=== PATIENT | female | born 1975 | race Caucasian/White ===

== ENCOUNTER 2022-06-02 13:05 | Emergency (ER) | payer OTHER, SELFPAY ==
--- NOTE | 2022-06-02 | ECG_ITS ---
Test Reason : disoriented Blood Pressure : / mmHG Vent. Rate : 068 BPM Atrial Rate : 068 BPM P-R Int : 180 ms QRS Dur : 086 ms QT Int : 410 ms P-R-T Axes : 052 -21 019 degrees QTc Int : 435 ms Sinus rhythm with occasional Premature ventricular complexes Minimal voltage criteria for LVH, may be normal variant ( R in aVL ) Possible Anterior infarct , age undetermined Abnormal ECG When compared with ECG of 27-NOV-2016 09:15, Premature ventricular complexes are now Present Nonspecific T wave abnormality no longer evident in Lateral leads Referred By: Generic ED Physician Electronically Signed By:Curtis Newell
--- NOTE | ~2022-06-02 | CT_ITS ---
EXAMINATION: CT HEAD WITHOUT CONTRAST CLINICAL INFORMATION: Headache, vision changes, confusion. COMPARISON: None TECHNIQUE: Contiguous axial imaging was performed from the skull base to vertex without intravenous administration of contrast. Coronal and sagittal reformatted images were obtained. This CT examination was performed using dose optimization techniques as appropriate, variously including the following: *Automated exposure control *Adjustment of mA and/or kV according to patient size (this includes techniques or standardized protocols for targeted exams where dose is matched to indication/reason for exam; i.e. extremities or head) *Use of iterative reconstruction technique DLP: 564 mGy-cm FINDINGS: There is no evidence of acute intracranial hemorrhage or territorial infarction. No abnormal mass effect or midline shift is seen. Tello to white matter differentiation is well preserved. No extra-axial fluid collections are identified. The ventricles are normal in size. There is no abnormal attenuation within the brain parenchyma. The osseous structures and soft tissues are normal. The mastoid air cells and visualized portions of the paranasal sinuses are well aerated. CT/CT head/brain wo con IMPRESSION: No acute intracranial pathology.
[2022-06-02 13:18] VITALS: BP 144/87; PULSE 67; RESP 18; TEMP 36.2; O2SAT 100; BMI 42.7
--- NOTE | 2022-06-02 13:56 | ED_ITS ---
HPI - Neuro Symptoms/Deficit General Chief Complaint: Neuro Symptoms/Deficit Stated Complaint: Brain fogginess/Vision issues Time Seen by Provider: 06/02/22 13:56 Source: patient Mode of arrival: ambulatory Limitations: no limitations History of Present Illness HPI Narrative: 46 yo female with history of Sjogren's, hypothyroidism, anxiety/depression who presents to the ER with the feeling of the ?brain fog. ? She reports this morning when she was looking at her resume for work she had vision changes, the words funny? and maybe a little bit blurry, she had a hard time describing how they actually looked. This lasted only couple of moments. She then had a very important virtual meeting for work and an important presentation to make. She reports during the presentation she lost her thoughts and was unable to remember what she was OC stay. She was anxious at the time. She reports since then she has had a feeling of ?disorientation and fogginess. She states on the way to the hospital she missed the exit because she could not remember where she was driving. She denies any weakness, numbness, tingling, speech difficulties. She feels almost back to baseline but ?a little off. ? She also reports new areas of bruising on her bilateral upper extremities. She is not on anticoagulation. She has a history of a provoked DVT and PE in 2016 and has been off of anticoagulation for some time now. She denies any shortness of breath or chest pain. Onset (ago): hour(s) Location: speech and altered History of same: No Severity: mild Quality: improving Relieving factors: time and rest Context: sudden onset On Anticoagulants: No Associated symptoms: confusion and headaches Treatments Prior to Arrival: none Related Data Allergies Allergy/AdvReac Type Severity Reaction Status Date / Time codeine [CODEINE] Allergy Unknown CHEST PAIN Unverified 08/12/20 19:09 Review of Systems Review of Systems: Constitutional: No Fever, No Chills ENT/Mouth: No sore throat, No Rhinorrhea, No Swallowing Difficulty Eyes: No Eye Pain, No Swelling, No Redness, +vision changes Cardiovascular: No Chest Pain, No SOB, No Orthopnea, No Edema Respiratory: No Cough, No Sputum, No Wheezing, No dyspnea Gastrointestinal: No Nausea, No Vomiting, No Diarrhea, No abdominal Pain Genitourinary: No Dysuria, No Urinary Frequency, No Hematuria Musculoskeletal: No joint pain, + Myalgias Skin: No Skin Lesions, No rash Neuro: + Weakness, No Numbness, No Dizziness, + Headache Psych: No Anxiety/Panic, No Depression Heme/Lymph: No Bruising, No Lymphadenopathy Endocrine: No Polyuria, No Polydipsia PMFSH Social History Social History Advance Directives: No Advance Directives Information Provided: No Physical Exam Vital Signs: Vital Signs: Last Vital Signs Temp 98.1 F 06/02/22 15:08 Pulse 67 06/02/22 15:08 Resp 17 06/02/22 15:08 BP 108/50 L 06/02/22 15:08 Pulse Ox 96 06/02/22 15:08 O2 Del Method 06/02/22 15:08 BMI result Body Mass Index 42.7 Appearance: Alert. Oriented X3. No acute distress. Eyes: Pupils equal, round and reactive to light. ENT: Pharynx normal. Neck: Normal inspection. Neck supple. CVS: Normal heart rate and rhythm. Pulses normal. Respiratory: No respiratory distress. Breath sounds normal. Abdomen: Soft and nontender. +BS x4 Skin: Skin warm and dry. Normal skin color. Normal skin turgor. No rashes. Extremities: No lower extremity edema. Small areas of ecchymosis on the left forearm. Nontender. Neuro: Oriented X 3. No motor deficit. No sensory deficit. normal speech and congition. CN II-XII intact. Steady gait. Normal finger to nose and heel to marie bilaterally. Course Course Course Narrative: 46-year-old female presents to the ER with ?brain fogginess? and headache as well as confusion that started this morning during a important work presentation. On arrival to the ER her vital signs are unremarkable and she has a completely normal neurologic exam. NIH 0. Low suspicion for TIA she has no risk factors. She is a never smoker, has no history of hypertension or hyperlipidemia. Will get a basic metabolic workup as well as a CT scan of her head given her complaints of headache at this time. Reevaluation(s) Reevaluation #1: Lab workup is normal. CT head is normal. TSH is normal. EKG is unremarkable and a troponin is negative. She remains neurologically intact. She complains of mild head pressure at this time but otherwise feels back to baseline. At this time comfortable with discharge home with plan to follow-up with her PCP at [place]. She was encouraged come back to the ER if she would have any new or worsening symptoms. Stable for DC. MDM - Neuro Symptoms/Deficit Medical Records Attestation: I reviewed the patient's medical records. Lab Data Attestation: I reviewed the patient's lab results. Result diagrams: 06/02/22 14:52 06/02/22 14:52 Labs: Lab Results 06/02/22 06/02/22 06/02/22 Range/Units 14:52 14:52 14:52 WBC 4.2 L (4.8-10.8) X10*3/uL RBC 4.35 (4.20-5.50) X10*6/uL Hgb 12.7 (12.0-16.0) g/dl Hct 38.2 (37.0-47.0) % MCV 87.8 (80.0-98.0) fL MCH 29.2 (27.0-33.0) pg MCHC 33.2 (31.0-35.0) g/dl RDW 14.6 (11.0-16.0) % Plt Count 256 (160-400) X10*3/uL MPV 9.2 L (9.4-12.3) fL Immature Gran % (Auto) 0.7 H (0.0-0.4) % Neut % (Auto) 64.3 (45-73) % Lymph % (Auto) 18.0 L (20-40) % [facility] % (Auto) 10.2 (2-11) % Eos % (Auto) 6.6 H (0-4) % Baso % (Auto) 0.2 (0-2) % Lymph # (Auto) 0.8 L (1.2-4.9) X10*3/uL [facility] # (Auto) 0.4 (0.1-1.2) X10*3/uL Eos # (Auto) 0.3 (0.0-0.4) X10*3/uL Baso # (Auto) 0.0 (0.0-0.2) X10*3/uL Abs Immat Gran (auto) 0.03 (0.00-0.03) X10*3/uL Absolute Neuts (auto) 2.7 (2.0-8.3) x10*3/uL Absolute Nucleated RBC 0.000 (0.0-0.012) X10*3/uL Nucleated RBC % (auto) 0.0 (0.0-0.2) /100WBC PT (10.0-13.1) SEC INR (0.9-1.1) APTT (24.1-38.0) SEC Sodium 139 (135-145) mmol/L Potassium 3.8 (3.3-5.1) mmol/L Chloride 109 H (96-108) mmol/L Carbon Dioxide 27 (22-29) mmol/L Anion Gap 7 L (12-20) BUN 13 (9-16) mg/dL Creatinine 0.93 (0.5-1.4) mg/dL Estim Creat Clear Calc 92.1 Estimated GFR > 60 Random Glucose 97 (60-115) mg/dL Calcium 8.6 (8.4-10.2) mg/dL Magnesium 1.9 (1.6-2.6) mg/dL Total Bilirubin 0.5 (0.0-1.0) mg/dL Direct Bilirubin 0.2 (0.0-0.5) mg/dL AST 20 (5-31) U/L ALT 20 (0-31) U/L Alkaline Phosphatase 79 (39-117) U/L Troponin I High Sens < 3.5 (<3.5-17.0) ng/L Total Protein 6.1 L (6.5-8.0) g/dL Albumin 3.6 (3.5-5.0) g/dL TSH 2.26 (0.32-4.0) uIU/mL 06/02/22 Range/Units 14:52 WBC (4.8-10.8) X10*3/uL RBC (4.20-5.50) X10*6/uL Hgb (12.0-16.0) g/dl Hct (37.0-47.0) % MCV (80.0-98.0) fL MCH (27.0-33.0) pg MCHC (31.0-35.0) g/dl RDW (11.0-16.0) % Plt Count (160-400) X10*3/uL MPV (9.4-12.3) fL Immature Gran % (Auto) (0.0-0.4) % Neut % (Auto) (45-73) % Lymph % (Auto) (20-40) % [facility] % (Auto) (2-11) % Eos % (Auto) (0-4) % Baso % (Auto) (0-2) % Lymph # (Auto) (1.2-4.9) X10*3/uL [facility] # (Auto) (0.1-1.2) X10*3/uL Eos # (Auto) (0.0-0.4) X10*3/uL Baso # (Auto) (0.0-0.2) X10*3/uL Abs Immat Gran (auto) (0.00-0.03) X10*3/uL Absolute Neuts (auto) (2.0-8.3) x10*3/uL Absolute Nucleated RBC (0.0-0.012) X10*3/uL Nucleated RBC % (auto) (0.0-0.2) /100WBC PT 11.1 (10.0-13.1) SEC INR 1.0 (0.9-1.1) APTT 26.9 (24.1-38.0) SEC Sodium (135-145) mmol/L Potassium (3.3-5.1) mmol/L Chloride (96-108) mmol/L Carbon Dioxide (22-29) mmol/L Anion Gap (12-20) BUN (9-16) mg/dL Creatinine (0.5-1.4) mg/dL Estim Creat Clear Calc Estimated GFR Random Glucose (60-115) mg/dL Calcium (8.4-10.2) mg/dL Magnesium (1.6-2.6) mg/dL Total Bilirubin (0.0-1.0) mg/dL Direct Bilirubin (0.0-0.5) mg/dL AST (5-31) U/L ALT (0-31) U/L Alkaline Phosphatase (39-117) U/L Troponin I High Sens (<3.5-17.0) ng/L Total Protein (6.5-8.0) g/dL Albumin (3.5-5.0) g/dL TSH (0.32-4.0) uIU/mL ECG Data Attestation: I personally reviewed and interpreted this ECG as follows: ECG interpretation date: 06/02/22 ECG interpretation time: 16:28 Interpretation: Normal sinus rhythm with occasional PVCs, heart rate 60 beats per minute, normal MO interval, normal QTC. No ST segment elevations or depressions. Discharge Plan Discharge Clinical Impression: Acute anxiety Patient Disposition: Home, Self-Care Instructions: Anxiety (ED) Additional Instructions: Your CT scan today was normal. Your labs were unremarkable. Your physical exam was normal and reassuring. It is possible your symptoms today were due to acute anxiety. Recommend following up with your Primary Care doctor next week. If you develop new or worsening symptoms call 911 or come back to the ER for further evaluation. Interventions: ED Discharge Assessment Last Done: 06/02/22 16:14 Discharge Date/Time: 06/02/22 16:19
[2022-06-02 15:01] LABS: MANUAL DIFF FLAG NO
[2022-06-02 15:02] LABS: Basophils Percent Auto 0.2 % (0-2); Eosinophils Absolute Auto 0.3 X10*3/uL (0.0-0.4); Eosinophils Percent Auto 6.6 % (0-4); Hematocrit 38.2 % (37.0-47.0); Hemoglobin 12.7 g/dl (12.0-16.0); Imm Gran Abs Auto 0.03 X10*3/uL (0.00-0.03); Imm Gran Pct Auto 0.7 % (0.0-0.4); Lymphocytes Absolute Auto 0.8 X10*3/uL (1.2-4.9); Mean Corpuscular HGB Conc 33.2 g/dl (31.0-35.0); Mean Corpuscular Hemoglobin 29.2 pg (27.0-33.0); Mean Corpuscular Volume 87.8 fL (80.0-98.0); Mean Platelet Volume 9.2 fL (9.4-12.3); Monocytes Absolute Auto 0.4 X10*3/uL (0.1-1.2); Monocytes Percent Auto 10.2 % (2-11); Neutrophils Absolute Auto 2.7 x10*3/uL (2.0-8.3); Neutrophils Percent Auto 64.3 % (45-73); Platelet Count 256 X10*3/uL (160-400); Red Blood Count 4.35 X10*6/uL (4.20-5.50); Red Cell Distribution Width 14.6 % (11.0-16.0); White Blood Count 4.2 X10*3/uL (4.8-10.8)
[2022-06-02 15:08] VITALS: BP 108/50; PULSE 67; RESP 17; TEMP 36.7; O2SAT 96
[2022-06-02 15:19] LABS: Prothrombin Time 11.1 SEC (10.0-13.1)
[2022-06-02 15:22] LABS: Partial Thromboplastin Time 26.9 SEC (24.1-38.0)
[2022-06-02 15:24] LABS: Alanine Aminotransferase 20 U/L (0-31); Albumin Level 3.6 g/dL (3.5-5.0); Alkaline Phosphatase 79 U/L (39-117); Anion Gap 7 (12-20); Aspartate Amino Transferase 20 U/L (5-31); Bilirubin Direct 0.2 mg/dL (0.0-0.5); Bilirubin Total 0.5 mg/dL (0.0-1.0); Blood Urea Nitrogen 13 mg/dL (9-16); Calcium 8.6 mg/dL (8.4-10.2); Carbon Dioxide 27 mmol/L (22-29); Chloride 109 mmol/L (96-108); Creatinine Clr Calc Pharmacy 92.1; Estimated Glomerular Filt Rate > 60; Glucose Random 97 mg/dL (60-115); Magnesium 1.9 mg/dL (1.6-2.6); Potassium 3.8 mmol/L (3.3-5.1); Sodium 139 mmol/L (135-145); Total Protein 6.1 g/dL (6.5-8.0)
[2022-06-02 15:25] LABS: Troponin-I High Sensitivity < 3.5 ng/L (<3.5-17.0)
[2022-06-02 15:43] LABS: TSH reflex Free T4 2.26 uIU/mL (0.32-4.0)
== END 2022-06-02 16:19 | disposition home or self-care (01) ==
PROVIDERS: Physician Assistant; Emergency Provider Emergency Medicine
DX: F41.9 Anxiety disorder, unspecified (principal); R41.0 Disorientation, unspecified; R51.9 Headache, unspecified
CPT/HCPCS: 36415; 70450; 80048; 80076; 83735; 84443; 84484; 85025; 85610; 85730; 93005; 99283; 99284

== ENCOUNTER 2023-02-18 11:26 | Emergency (ER) | payer OTHER, SELFPAY ==
[2023-02-18 11:33] VITALS: BP 156/76; PULSE 100; RESP 19; TEMP 36.6; O2SAT 100; BMI 90.8
--- NOTE | 2023-02-18 11:42 | ED.GENADULT ---
HPI - General Adult General Chief complaint: Headache <TISH Guzman Last Filed: 02/19/23 11:38> Stated complaint: Neck pain rad to head/Rash <TISH Guzman Last Filed: 02/19/23 11:38> Time Seen by Provider: 02/18/23 12:11 <TISH Guzman Last Filed: 02/19/23 11:38> Source: patient and family <TISH Dee Last Filed: 02/18/23 13:09> Mode of arrival: ambulatory <TISH Dee Last Filed: 02/18/23 13:09> Limitations: no limitations <TISH Dee Last Filed: 02/18/23 13:09> History of Present Illness HPI narrative: 47 year old patient with pmhx Sjorgen, migraines and hypothyroidism presents to the ED for bodyaches, chills, headache, and neck pain that started on Sunday. Daughter has similar symptoms at bedside. Daughter symptoms started 1st. Her daughter is 14. patient also states left leg itchy rash for 1 weeks that is improving at this time. She denies any measured fevers, neck stiffness, trouble swallowing or breathing, changes in voice, chest pain or shortness of breath, nausea/vomiting/diarrhea, new substances, abdominal pain, recent travel or any other symptoms complaints or concerns at this time. <TISH Dee - Last Filed: 02/18/23 13:09> MD complaint: URI symptoms <TISH Dee Last Filed: 02/18/23 13:09> Onset (ago): day(s) (2) <TISH Dee Last Filed: 02/18/23 13:09> Related Data Home medications: Previous Rx's Medication Instructions Recorded amoxicillin 875 mg-potassium 1 tab PO BID 7 days #14 tabs 02/18/23 clavulanate 125 mg tablet <TISH Guzman Last Filed: 02/19/23 11:38> Allergies/adverse reactions: Allergies Allergy/AdvReac Type Severity Reaction Status Date / Time codeine [CODEINE] Allergy Unknown CHEST PAIN Verified 02/18/23 11:37 <TISH Guzman Last Filed: 02/19/23 11:38> Review of Systems Review of Systems: Constitutional : + chills/fatigue/malaise, No Weight loss, No Fever, No Night Sweats ENT/Mouth : + sore throat/nasal congestion/rhinorrhea, No Hearing loss, No Ear Pain,No Sinus Pain, No Hoarseness, No Swallowing Difficulty Eyes: No Eye Pain, No Swelling, No Redness, No Foreign Body, No Discharge, No Vision Changes Cardiovascular : No Chest Pain, No SOB, No Dyspnea on Exertion, No Orthopnea, No Edema, No Palpitations Respiratory : + Cough, No Sputum, No Wheezing, No Smoke Exposure, No Dyspnea Gastrointestinal : No Nausea, No Vomiting, No Diarrhea, No Constipation, No abdominal Pain, No Hematochezia, No Melena Genitourinary : no irregular bleeding, No Dysuria, No Urinary Frequency, No Hematuria, No Urinary Incontinence, No Urgency, No Flank Pain, No Urinary Flow Changes, No Hesitancy Musculoskeletal : No joint pain, + Myalgias, No Joint Swelling Skin : No Skin Lesions, No rash Neuro : No Weakness, No Numbness, No Paresthesias, No Loss of Consciousness, No Dizziness, No Headache Psych : No Anxiety/Panic, No Depression, No SI/HI/AH/VH, No Social Issues, Heme/Lymph: No Bruising, No Bleeding,No Lymphadenopathy Endocrine : No Polyuria, No Polydipsia, No Temperature Intolerance <TISH Dee - Last Filed: 02/18/23 13:09> Yes all other systems are reviewed and are negative <TISH Dee - Last Filed: 02/18/23 13:09> [facility] Past Medical History Attestation statement: The following information was validated with the patient. <TISH Dee - Last Filed: 02/18/23 13:09> Source: old records reviewed, obtained from family and nursing notes reviewed <TISH Dee - Last Filed: 02/18/23 13:09> Social History Social History: Social History Advance Directives: No Advance Directives Information Provided: Yes <TISH Guzman - Last Filed: 02/19/23 11:38> Physical Exam ED Vital Signs: Vital Signs - 24 hr 03/26/23 11:33 Temperature 98 F Pulse Rate 100 Respiratory Rate 19 Blood Pressure 156/76 H Pulse Oximetry 100 Oxygen Delivery Method Room Air BMI result Body Mass Index 90.8 <TISH Guzman - Last Filed: 02/19/23 11:38> Vital Signs - 24 hr 02/18/23 11:33 Temperature 98 F Pulse Rate 100 Respiratory Rate 19 Blood Pressure 156/76 H Pulse Oximetry 100 Oxygen Delivery Method Room Air BMI result Body Mass Index 90.8 Vital signs have been reviewed and all within normal limits <TISH Dee - Last Filed: 02/18/23 13:09> Appearance: Alert. Oriented X3. No acute distress. Head: Normal external exam. Normocephalic. Eyes: PERRLA. EOMI. Conjunctiva and sclera normal. Eyelids normal. ENT: TM WNL. EAC WNL.Pharynx normal. Uvula midline. Moist mucous membranes. No trismus noted. No drooling noted. No muffled voice noted. Neck: Normal inspection. Neck supple. FROM. No adenopathy. No meningeal signs. CVS: Normal heart rate and rhythm. Heart sound normal. No murmurs noted. Pulses normal throughout. Respiratory: No respiratory distress. Painless inspiration. Breath sounds normal. No wheezes/rales/rhonchi noted. Chest nontender. No accessory muscle usage noted or decreased air movement noted. Abdomen: Soft and nontender. Nondistended. No guarding. No rigidity. Bowel sounds normal in all 4 quadrants. No distention noted. No organomegaly noted. No visible injury noted. No rebound tenderness. Negative Rovsing sign. Negative obturator's sign. Negative psoas sign. Negative Serrano sign. Back: No CVA tenderness. Full range of motion noted. Skin: Skin warm and dry. Normal skin color. Normal skin turgor. No rashes/lesions/lacerations noted. Extremities: Extremities exhibit normal range of motion. Extremities nontender. Neuro: Oriented X 3. No motor deficit. No sensory deficit. Reflexes normal. Normal steady gait. CN's II-XII intact bilaterally? <TISH Dee - Last Filed: 02/18/23 13:09> Course Course Course Narrative: RME: 47 yold patient with pmh Sjorgen, migraines and hypothyroidism presents to the ED for bodyaches, chills, headache, and neck pain. patient also states left leg itchy rash for 1 weesk She states Daughter had symptoms also and had it first. Physcial exam negative for nuchal rigidity or other meningeal signs. left leg rash resembles mild dermatitis with excorations. no signs orther rash or petechia. SARS and strep ordered. <TISH Guzman - Last Filed: 02/19/23 11:38> Reevaluation(s) Reevaluation #1: This patient presents with acute cough, most consistent with pharyngitis versus bronchitis. Presentation not consistent with acute bacterial pneumonia, influenza, asthma, transient airway hyperresponsiveness. Presentation not consistent with chronic causes of cough (including GERD, asthma, postnasal discharge, medication side effect, CHF, lung cancer or mass). Patient was negative for COVID/RSV/flu and pharyngitis although daughter has similar symptoms therefore will treat for possible bacterial pharyngitis/URI that is bacterial. Will DC home with symptomatic treatment as well and to return if any new or worsening symptoms. Patient with daughter at bedside understand agree this plan. <TISH Dee - Last Filed: 02/18/23 13:09> Time: 13:08 <TISH Dee - Last Filed: 02/18/23 13:09> Medical Decision Making Lab Data MDM Lab Attestation statement: I reviewed the patient's lab results. <TISH Dee - Last Filed: 02/18/23 13:09> Labs: Lab Results 02/18/23 02/18/23 Range/Units 11:52 11:52 Influenza Type A (PCR) NEGATIVE (Negative) Influenza Type B (PCR) NEGATIVE (Negative) RSV RNA Qual (PCR) NEGATIVE (Negative) SARS-CoV-2 RNA (RT-PCR) NEGATIVE (Negative) S. pyogenes GrpA RODERICK Negative (Negative) <TISH Guzman - Last Filed: 02/19/23 11:38> Lab Results 02/18/23 02/18/23 Range/Units 11:52 11:52 Influenza Type A (PCR) NEGATIVE (Negative) Influenza Type B (PCR) NEGATIVE (Negative) RSV RNA Qual (PCR) NEGATIVE (Negative) SARS-CoV-2 RNA (RT-PCR) NEGATIVE (Negative) S. pyogenes GrpA RODERICK Negative (Negative) <TISH Dee - Last Filed: 02/18/23 13:09> Discharge Plan Discharge Clinical Impression: Acute upper respiratory infection <TISH Guzman - Last Filed: 02/19/23 11:38> Patient Disposition: Home, Self-Care <TISH Guzman - Last Filed: 02/19/23 11:38> Instructions: Upper Respiratory Infection (DC) <TISH Guzman - Last Filed: 02/19/23 11:38> Prescriptions: New amoxicillin-pot clavulanate 875-125 mg tablet 1 tab PO BID 7 Days Qty: 14 0RF <TISH Guzman - Last Filed: 02/19/23 11:38> Referrals: Meera Mitchell PA [Emergency Midlevel Provider] - 2 days (Your PCP as needed or symptoms worsen) <TISH Guzman - Last Filed: 02/19/23 11:38> Stand Alone Forms: Work/School Release <TISH Guzman - Last Filed: 02/19/23 11:38> Interventions: ED Discharge Assessment Last Done: 02/18/23 13:24 <TISH Guzman - Last Filed: 02/19/23 11:38> Discharge Date/Time: 02/18/23 13:25 <TISH Guzman - Last Filed: 02/19/23 11:38>
[2023-02-18 12:12] LABS: IDNOW Serial# 08D9AD1C; Strep A Nucleic Acid Negative (Negative)
[2023-02-18 12:37] LABS: Influenza A PCR NEGATIVE (Negative); Influenza B PCR NEGATIVE (Negative); Resp Syncy Virus RNA Qual PCR NEGATIVE (Negative); SARS COV2 PCR INHOUSE NEGATIVE (Negative)
== END 2023-02-18 13:25 | disposition home or self-care (01) ==
PROVIDERS: Physician Assistant; Emergency Provider Emergency Medicine
DX: J06.9 Acute upper respiratory infection, unspecified (principal); R51.9 Headache, unspecified; Z20.822 Contact with and (suspected) exposure to COVID-19; Z20.828 Contact with and (suspected) exposure to other viral communicable diseases
CPT/HCPCS: 0241U; 87651; 99283